=== PATIENT | female | born 1960 | race Caucasian/White ===

== ENCOUNTER → 2017-08-26 08:08 | Outpatient (CLI) | payer BC, SELFPAY ==
--- NOTE | 2017-08-26 08:30 | RAD_ITS ---
STUDY: PORTOGRAM. REASON FOR EXAM: Female, 56 years old. Assessment of the indwelling right portacatheter. FLUOROSCOPY TIME (if supplied): (0:52) minutes/seconds TECHNIQUE: 20 cc of Isovue-300 was injected into the indwelling portacatheter. Imaging was obtained. COMPARISON: None. FINDINGS: There is evidence of leakage of the contrast in the proximal portion of the catheter overlying the right lung apex and right clavicle. There is free flow of contrast from the tip of the catheter. RAD/Con Inj Omkar Eval [employer] [employer] Fluro IMPRESSION: Leakage of the catheter is seen in the proximal portion of the catheter overlying the right lung apex and right clavicle. The catheter is patent distally. Electronically Signed: Paulo Quiñones MD at 8:56 EDT Tel [phone], Service support ,
== END ==
LOC: RAD 08:11
PROVIDERS: Family Provider Student in an Organized Health Care Education/Training Program; PCP Student in an Organized Health Care Education/Training Program; Visit Provider Internal Medicine Hematology & Oncology
DX: Z45.2 Encounter for adjustment and management of vascular access device (principal)
CPT/HCPCS: 36598; Q9967; A4216

== ENCOUNTER 2018-05-02 20:57 | Emergency (ER) | payer BC, SELFPAY ==
[2018-05-02 20:59] VITALS: BP 124/83; PULSE 86; RESP 16; TEMP 36.6; O2SAT 98; BMI 21.9
--- NOTE | 2018-05-02 21:15 | EKG12_ITS ---
Test Reason : SOB Blood Pressure : / mmHG Vent. Rate : 084 BPM Atrial Rate : 084 BPM P-R Int : 206 ms QRS Dur : 072 ms QT Int : 388 ms P-R-T Axes : 069 -37 059 degrees QTc Int : 458 ms Normal sinus rhythm Left axis deviation Septal infarct , age undetermined Abnormal ECG Confirmed by ROWAN VELA ([id number]), medical transcription editor MOLLY WALKER ([id number]) on 05/06/2018 1:24:59 PM Referred By: GRIS Confirmed By:ROWAN VELA
[2018-05-02 21:38] VITALS: O2SAT 96
[2018-05-02 21:50] VITALS: PULSE 83; RESP 20
[2018-05-02] MEDS: Albuterol 2.5 MG/3 ML VIAL.NEB. INHALATION (21:50)
[2018-05-02] MEDS: Ipratropium/Albuterol Sulfate 3 ML AMPUL.NEB INHALATION (21:50)
[2018-05-02] MEDS: MethylPREDNISolone 125 MG/2 ML Vial IV (21:58)
[2018-05-02 22:03] VITALS: BP 115/73; PULSE 81; RESP 20; TEMP 36.8; O2SAT 98
[2018-05-02 22:04] LABS: Absolute Lymphocyte Count 2.29 X10^3/ul (0.83-4.51); Absolute Neutrophil Count 5.2 X10^3/uL (2.0-7.7); Basophil# 0.03 X10^3/uL; Basophil% 0.4 % (0-1); Eosinophil# 0.08 X10^3/uL; Eosinophils% 0.9 % (0-5); Hematocrit 33.6 % (37-47); Hemoglobin 10.3 g/dl (12.0-15.0); Lymphocyte # 2.29 X10^3/ul (4.0); Lymphocyte % 26.8 % (19-41); Mean Corp Hgb Conc 30.7 g/gl (32-36); Mean Corpuscular Volume 84.8 fL (81-99); Monocyte# 0.94 X10^3/uL; Neutrophil % 60.7 % (47-70); POSITIVE COUNT NO; POSITIVE DIFFERENTIAL NO; POSITIVE MORPHOLOGY NO; Platelet Count 444 K/mm3 (150-450); RBC Distribution Width CV 14.6 % (11.6-14.6); Red Blood Count 3.96 M/mm3 (4.2-5.4); White Blood Count 8.6 K/mm3 (4.4-11.0)
--- NOTE | 2018-05-02 22:06 | RAD_ITS ---
STUDY: X-RAY CHEST REASON FOR EXAM: Female, 57 years old. Worsening cough. TECHNIQUE: PA and lateral views of the chest. COMPARISON: August 29, 2015 FINDINGS: There is no new focal consolidation. There is a right-sided Mediport in place terminating within the superior vena cava. Normal size heart. There is a prosthetic mitral valve in place. Normal mediastinum and chaz. Normal visualized pulmonary arteries. Normal visualized aortic arch and descending thoracic aorta. Normal visualized thoracic spine. Normal visualized ribs, clavicles, and shoulders. There is no demonstrated abnormality of the visualized soft tissue structures of the upper abdomen. RAD/Chest PA and Lateral IMPRESSION: No acute cardiopulmonary process. Electronically Signed: Charlotte Ma MD at 22:40 EST Tel , Service support ,
[2018-05-02 22:19] LABS: Anion Gap 7 (5-15); BUN 17 mg/dL (7-18); BUN/Creat Ratio 18.6 RATIO (10-20); Calcium,Total 8.3 mg/dL (8.5-10.1); Chloride 107 mmol/L (98-107); Creatinine, Serum 0.91 mg/dL (0.55-1.02); EST Glomerular Filtration Rate 68 mL/min (>60); Est Glom Filt Rate - Afr Amer 82 mL/min (>60); Estimated Creatinine Clearance 60.32 ml/min; Glucose 88 mg/dL (74-106); Potassium 3.9 mmol/L (3.5-5.1); Sodium Level 139 mmol/L (136-145)
[2018-05-02 23:00] VITALS: BP 114/69; PULSE 81; RESP 19; TEMP 36.6; O2SAT 99
--- NOTE | 2018-05-02 23:07 | ED.VISSUMM ---
- ER Visit Summary Date of Service: 05/02/18 Chief Complaint: Wheezing and cough History of Present Illness: The patient is a 57 F with multiple medical issues including asthma/COPD presenting with cough and wheezing for several days. She saw her doctor and was prescribed Zithromax and steroids but her symptoms have not resolved. Her right lung feels somewhat sore but she denies pleuritic chest pain, diaphoresis, or any exertional component. It only hurts with coughing. Physical Examination: Vitals are within normal limits. She is not hypoxic. She has wheezing in both lung coelho but is still moving air well. Minimal chest wall tenderness on the right. No clinical evidence of DVT. Test Results: Test x-ray negative for infiltrate. Labs within normal limits. EKG unremarkable. She was given IV Solu-Medrol and several breathing treatments. On reexamination her lungs are clear and her right lung pain has resolved. Her pulse oximetry is 100% and she has no evidence of DVT. Emergency Department Course and Treatment: She looks quite well and is not in distress. She is breathing easily. She has no clinical evidence of DVT and no history of PE. Her right lung pain has resolved. She feels well and would like to go home. She is already on steroids and antibiotics. She will continue breathing treatments and assures me she will see her doctor tomorrow for follow-up. She will come back here if worse. Treatment Plan: We will up with her doctor tomorrow Disposition: Home stable Impression: Initial encounter acute asthma exacerbation, initial encounter acute lower respiratory tract infection This note was generated with Reel[employer]fer dictation software. It may contain incorrect words, spelling, and punctuation that were not noted in review of the chart prior to signing ED Disposition - Plan for ED Patient: Instructions: ED Bronchitis Asthmatic Referrals: Romeo Jerome, [Primary Care Provider] - As soon as possible
--- NOTE | 2018-05-02 23:11 | ED.DCSUM_ITS ---
- ER Visit Summary Date of Service: 05/02/18 Chief Complaint: Wheezing and cough History of Present Illness: The patient is a 57 F with multiple medical issues including asthma/COPD presenting with cough and wheezing for several days. She saw her doctor and was prescribed Zithromax and steroids but her symptoms have not resolved. Her right lung feels somewhat sore but she denies pleuritic chest pain, diaphoresis, or any exertional component. It only hurts with coughing. Physical Examination: Vitals are within normal limits. She is not hypoxic. She has wheezing in both lung coelho but is still moving air well. Minimal chest wall tenderness on the right. No clinical evidence of DVT. Test Results: Test x-ray negative for infiltrate. Labs within normal limits. EKG unremarkable. She was given IV Solu-Medrol and several breathing treatments. On reexamination her lungs are clear and her right lung pain has resolved. Her pulse oximetry is 100% and she has no evidence of DVT. Emergency Department Course and Treatment: She looks quite well and is not in distress. She is breathing easily. She has no clinical evidence of DVT and no history of PE. Her right lung pain has resolved. She feels well and would like to go home. She is already on steroids and antibiotics. She will continue breathing treatments and assures me she will see her doctor tomorrow for follow- up. She will come back here if worse. Treatment Plan: We will up with her doctor tomorrow Disposition: Home stable Impression: Initial encounter acute asthma exacerbation, initial encounter acute lower respiratory tract infection This note was generated with [employer] dictation software. It may contain incorrect words, spelling, and punctuation that were not noted in review of the chart prior to signing ED Disposition - Plan for ED Patient: Instructions: ED Bronchitis Asthmatic Referrals: Romeo Jerome, [Primary Care Provider] - As soon as possible
[2018-05-02 23:36] VITALS: BP 114/64; PULSE 71; RESP 16; O2SAT 97
== END 2018-05-02 23:38 | disposition home or self-care (01) ==
LOC: ED 21:23
PROVIDERS: Emergency Provider Emergency Medicine; Family Provider Student in an Organized Health Care Education/Training Program; PCP Student in an Organized Health Care Education/Training Program
DX: J44.0 Chronic obstructive pulmonary disease with (acute) lower respiratory infection (principal); J45.901 Unspecified asthma with (acute) exacerbation; Z79.02 Long term (current) use of antithrombotics/antiplatelets; Z79.899 Other long term (current) drug therapy
CPT/HCPCS: 36591; 71046; 80048; 84484; 85025; 87804; 93005; 94640; 96374; 99283; A4216

== ENCOUNTER 2018-07-10 12:29 | Emergency (ER) | payer BC, SELFPAY ==
[2018-07-10 12:30] VITALS: BP 115/78; PULSE 84; RESP 16; TEMP 36.2; O2SAT 100; BMI 21.4
--- NOTE | 2018-07-10 12:52 | CT_ITS ---
STUDY: CT FACIAL BONES WITHOUT CONTRAST REASON FOR EXAM: Female, 57 years old. Fall, striking head on ground, pain left side of the head. Daily aspirin. RADIATION DOSAGE (If Supplied By Facility): CTDIvol = ( 29.38 ) mGy, DLP = ( 547.46 ) mGycm TECHNIQUE: The patient was scanned in a multi detector CT scanner. Sagittal and coronal images were reconstructed. Individualized dose optimization techniques were used for this CT. COMPARISON: CT head same date. FINDINGS: Superficial facial soft tissues exhibit no acute abnormality. Orbital contents normal. Deep facial and pharyngeal soft tissues exhibit no acute process. No cervical lymphadenopathy. Upper cervical spine intact. Sinuses clear. Orbital rims, agustin, nasal bone, maxilla, zygomatic arches, mandible intact. CT/Sinus/Facial Bone IMPRESSION: No evidence of acute injury. Electronically Signed: Austen Chavez MD at 14:07 EDT Tel , Service support ,
--- NOTE | 2018-07-10 12:52 | CT_ITS ---
STUDY: CT BRAIN WITHOUT CONTRAST REASON FOR EXAM: Female, 57 years old. Fall, striking head on the ground, pain left side of the head. Daily aspirin. RADIATION DOSAGE (If Supplied By Facility): CTDIvol = ( 44.99 ) mGy, DLP = ( 745.49 ) mGycm TECHNIQUE: Transaxial CT imaging of the brain was performed without administration of intravenous contrast material. Sagittal and coronal 2-D MPR Individualized dose optimization techniques were used for this CT. COMPARISON: CT maxillofacial same date.. FINDINGS: Paranasal sinuses within the field of view are clear. Mastoid air cells and middle ear cavities clear. Calvarium osseous structures intact. Extra cranial soft tissues including orbital contents exhibits no acute process. The brain is normal in attenuation characteristics and morphology. There is no acute intracranial bleed. CT/Brain/Head without Contrast IMPRESSION: No evidence of acute injury. No acute intracranial process. Electronically Signed: Austen Chavez MD at 14:05 EDT Tel , Service support ,
--- NOTE | 2018-07-10 12:52 | RAD_ITS ---
STUDY: X-RAY - PELVIS AND LEFT HIP REASON FOR EXAM: Female, 57 years old. Fall, left hip pain TECHNIQUE: 3 views of the pelvis and hip. COMPARISON: None. FINDINGS: Osteopenia, minimal low lumbar scoliosis, low lumbar facet arthropathy and mild disc degenerative disease, mild symmetric degenerative features of the SI joints, symmetric and normal appearance of the sacral ala. Iliac crests intact. Pubic rami intact. Mild DJD of the right hip joint. Next line mild DJD of the left hip joint. It exhibits minimal joint margin osteophytic lipping. There is no evidence of proximal femur fracture of the right or the left. Periarticular soft tissues unremarkable. RAD/HIP, UNI W/ Pelvis 2-3 Views IMPRESSION: Mild hip DJD. No radiographic evidence of acute injury. Electronically Signed: Austen Chavez MD at 14:04 EDT Tel , Service support ,
--- NOTE | 2018-07-10 12:59 | ED.DCSUM_ITS ---
- ER Visit Summary Date of Service: 07/10/18 Chief Complaint: Fall History of Present Illness: The patient is a 57 F presenting after fall. Patient states this occurred last night. She was trying to get her dog into the house and the dog pulled her and she tripped and fell. She landed on her left side. She hit her head but did not lose consciousness. She was able to ambulate after the fall. She complains of left hip pain and persistent headache. She did not take any medications for this at home. Denies other complaints. Physical Examination: Vitals are stable. Patient is afebrile. Alert no acute distress. HEENT exam left periorbital tenderness. No pain with extraocular movements. Midface is stable Neck is nontender Lungs are clear and equal bilaterally. Heart is regular rate and rhythm. Abdomen is soft nontender nondistended. Extremities mild lateral left hip tenderness, active full range of motion Skin is warm and dry. No focal neurologic deficit. Remainder of exam is unremarkable. Emergency Department Course and Treatment: Left hip x-ray shows mild hip DJD. No radiographic evidence of acute injury. CT head and facial bones shows no evidence of acute injury. No acute intracranial process. Patient is able to ambulate in the ED. On reevaluation she is resting comfortably. Advised to follow-up with her primary care physician. Advised return to ED for worsening complaints. Disposition: Discharge home Impression: Status post mechanical fall, closed head injury, left hip contusion This note was generated with Novogen dictation software. It may contain incorrect words, spelling, and punctuation that were not noted in review of the chart prior to signing ED Disposition - Plan for ED Patient: Referrals: Romeo Jerome DO [Primary Care Provider] -
--- NOTE | 2018-07-10 14:19 | ED.DEP ---
ED Disposition - Plan for ED Patient: Instructions: ED Mechanical Fall Referrals: Romeo Jerome DO [Primary Care Provider] -
[2018-07-10 14:23] VITALS: BP 118/62; PULSE 75; RESP 18; O2SAT 100
== END 2018-07-10 14:24 | disposition home or self-care (01) ==
LOC: ED 13:05
PROVIDERS: Emergency Provider Emergency Medicine; Family Provider Student in an Organized Health Care Education/Training Program; PCP Student in an Organized Health Care Education/Training Program
DX: S09.90XA Unspecified injury of head, initial encounter (principal); S70.02XA Contusion of left hip, initial encounter; M16.12 Unilateral primary osteoarthritis, left hip; W01.0XXA Fall on same level from slipping, tripping and stumbling without subsequent striking against object, initial encounter; Y93.9 Activity, unspecified; Y92.9 Unspecified place or not applicable; J44.9 Chronic obstructive pulmonary disease, unspecified; M81.0 Age-related osteoporosis without current pathological fracture; Z79.899 Other long term (current) drug therapy
CPT/HCPCS: 70450; 70486; 73502; 99282

== ENCOUNTER 2019-12-07 09:26 | Emergency (ER) | payer BC, SELFPAY ==
[2019-12-07 09:32] VITALS: BP 142/92; PULSE 89; RESP 16; TEMP 36.3; O2SAT 99; BMI 21.6
--- NOTE | 2019-12-07 09:47 | EKG12_ITS ---
Test Reason : CP Blood Pressure : / mmHG Vent. Rate : 080 BPM Atrial Rate : 080 BPM P-R Int : 196 ms QRS Dur : 084 ms QT Int : 386 ms P-R-T Axes : 081 -63 072 degrees QTc Int : 445 ms Normal sinus rhythm Left axis deviation Abnormal ECG Confirmed by AMOS SANDHU, RODRÍGUEZ ([id number]), production editor ERIKA ARREAGA ([id number]) on 12/13/2019 10:59:43 AM Referred By: AGGIE/EUGENIA Confirmed By:STEPHON TRINIDAD MD
--- NOTE | 2019-12-07 10:15 | RAD_ITS ---
STUDY: X-RAY CHEST REASON FOR EXAM: Female, 59 years old. CHEST PAIN, ASTHMA COPD, PORT PLACED FOR PORPHYRIA TECHNIQUE: Single AP portable view of the chest. COMPARISON: 05/02/2018. FINDINGS: Valve repair. Right-sided Mediport catheter with tip at the atrial caval junction. Cardiac silhouette unremarkable. Pulmonary vascularity unremarkable. Aorta unremarkable. No focal patchy airspace opacities. No pleural effusions. COPD/emphysema. Upper abdomen unremarkable. Osseous structures intact. No pneumothorax. RAD/Chest 1 View (Portable) IMPRESSION: No acute cardiopulmonary findings Electronically Signed: Davian Harris DO at 10:35 EDT Tel , Service support ,
[2019-12-07 10:19] LABS: Absolute Lymphocyte Count 1.57 X10^3/uL (0.83-4.51); Absolute Neutrophil Count 2.7 X10^3/uL (2.0-7.7); Basophil# 0.03 X10^3/uL; Basophil% 0.6 % (0-1); Eosinophil# 0.12 X10^3/uL; Eosinophils% 2.4 % (0-5); Hematocrit 38.7 % (37-47); Hemoglobin 12.2 g/dL (12.0-15.0); Lymphocyte # 1.57 X10^3/ul (4.0); Lymphocyte % 31.9 % (19-41); Mean Corp Hgb Conc 31.5 g/dL (32-36); Mean Corpuscular Hgb 26.3 pg (27.0-32.0); Mean Corpuscular Volume 83.4 fL (81-99); Mean Platelet Vol. 9.4 fl (6.2-12.0); Monocyte# 0.52 X10^3/uL; Monocyte% 10.6 % (0-10); NRBC Flagged by Analyzer 0 % (0-5); Neutrophil # 2.67 X10^3/uL (2.7-7.7); Neutrophil % 54.3 % (47-70); Platelet Count 327 K/mm3 (150-450); RBC Distribution Width CV 13.3 % (11.6-14.6); RBC Distribution Width SD 40.6 fl (35.1-43.9); Red Blood Count 4.64 M/mm3 (4.2-5.4); White Blood Count 4.9 K/mm3 (4.4-11.0)
[2019-12-07 10:26] VITALS: BP 110/56; PULSE 73; RESP 18; O2SAT 96
[2019-12-07 10:33] LABS: D-Dimer Quantitative (DVT/PE) <= 0.27 FEU/ug/m (0.27-0.49)
[2019-12-07 10:36] VITALS: O2SAT 97
[2019-12-07 10:36] LABS: Anion Gap 4 (5-15); BUN 15 mg/dL (7-18); BUN/Creat Ratio 18.3 RATIO (10-20); Calcium,Total 8.9 mg/dL (8.5-10.1); Chloride 106 mmol/L (98-107); Creatinine, Serum 0.82 mg/dL (0.55-1.02); EST Glomerular Filtration Rate 76 mL/min (>60); Est Glom Filt Rate - Afr Amer 93 mL/min (>60); Estimated Creatinine Clearance 68.11 ml/min; Glucose 91 mg/dL (74-106); Potassium 3.6 mmol/L (3.5-5.1); Sodium Level 139 mmol/L (136-145)
[2019-12-07] MEDS: 0.9% Normal Saline 1,000 ML 150 ML IV (10:43)
[2019-12-07 10:45] VITALS: BP 113/68; PULSE 70
[2019-12-07] MEDS: Nitroglycerin SL (ED/IMG/CATH) 0.4 MG TABLET SUBLINGUAL (10:45)
[2019-12-07] MEDS: Aspirin 81 MG TAB.CHEW 324 MG PO (10:45)
--- NOTE | 2019-12-07 11:04 | ED.DEP ---
ED Disposition - Plan for ED Patient: Instructions: ED Chest Pain Atypical Unkn Cause, ED CHEST PAIN [place] Referrals: Romeo Jerome DO [Primary Care Provider] - 3-5 Days
[2019-12-07 11:35] VITALS: BP 112/67; PULSE 78; RESP 18; TEMP 36.6
--- NOTE | 2019-12-09 21:34 | ED.VISSUMM ---
- ER Visit Summary Date of Service: 12/09/19 Chief Complaint: [Chest pain] History of Present Illness: The patient is a 59 F [presents to the emergency department chest pain that started 6 days ago. Patient said intermittent discomfort she describes as an aching in the left side of her chest. She currently rates it about a 4 5 out of 10. There is no radiation of the pain. Patient states she is had some hot and cold flashes. She took some Tums but did not get any relief for the discomfort. She denies any radiation of the pain. She denies any significant shortness of breath. Patient's had no nausea or vomiting. She is not had discomfort like this before. She denies recent travel or surgery. No history of PE or DVT. No cardiac history. Patient does have history of SVT, porphyria, and hypothyroidism. Patient has history of osteoarthritis. Patient does not smoke.] Physical Examination: [HEENT-PERRLA, EOMI. Cranial nerves II through XII grossly intact. TMs clear. Mucous membranes moist. No adenopathy. Cardiovascular-regular rate and rhythm without murmur or ectopy Lungs-clear to auscultation, chest wall stable without crepitus or subcu emphysema. Patient does have tenderness palpation over the left anterior chest wall that seems to reproduce her pain. Abdomen-normoactive bowel sounds, soft, nontender, no rebound or rigidity, no peritoneal signs. Extremities-intact ?4, normal range of motion, normal pulses, atraumatic] Test Results: [EKG obtained arrival shows sinus rhythm with a ventricular rate of 80 bpm with no acute segment changes. Chest x-ray showed nothing acute. CBC with it was normal. Chemistries unremarkable. Troponin was less than 0.015. D-dimer was less than 0.25.] Emergency Department Course and Treatment: [IV line established on arrival. Patient was given aspirin.] Patient was given sublingual nitro which really did not improve her pain. Treatment Plan: [This point discussed results with patient. Her chest pain is atypical and she is low risk as her AL risk score was 0. Patient's pain is reproducible. At this point I feel she can follow-up with her primary care physician the next 3 to 5 days. Patient advised to return if worsening pain, increasing shortness of breath, exertional symptoms, or condition should worsen anyway.] Disposition: [Discharged home in stable condition] Impression: [Chest pain-atypical Chest wall pain] This note was generated with Spavista dictation software. It may contain incorrect words, spelling, and punctuation that were not noted in review of the chart prior to signing ED Disposition - Plan for ED Patient: Disposition: Home or Assisted Living Instructions: ED Chest Pain Atypical Unkn Cause, ED CHEST PAIN [place] Referrals: Romeo Jerome DO [Primary Care Provider] - 3-5 Days
== END 2019-12-07 11:37 | disposition home or self-care (01) ==
PROVIDERS: Emergency Provider Emergency Medicine; PCP Student in an Organized Health Care Education/Training Program
DX: R07.89 Other chest pain (principal)
CPT/HCPCS: 36591; 71045; 80048; 84484; 85025; 85379; 93005; 99285; J7030; A4216

== ENCOUNTER 2021-01-28 15:48 | Outpatient (CLI) | payer BC, SELFPAY ==
[2021-01-28] MEDS: 0.9% Saline Lock 10 ML Syringe IV (16:20)
[2021-01-28 16:21] VITALS: BP 103/47; PULSE 74; RESP 16; TEMP 36.7; O2SAT 95; BMI 22.1
[2021-01-28 17:02] VITALS: BP 115/55; PULSE 78; RESP 16; TEMP 36.8; O2SAT 100
[2021-01-28 17:48] VITALS: BP 97/62; PULSE 76; RESP 16; TEMP 36.6; O2SAT 100
== END 2021-01-28 18:00 | disposition home or self-care (01) ==
LOC: MS3OUT 15:48 → MS3 15:51
PROVIDERS: PCP Student in an Organized Health Care Education/Training Program; Referring Provider Nurse Practitioner Adult Health; Visit Provider Nurse Practitioner Adult Health
DX: Z23 Encounter for immunization (principal); U07.1 COVID-19
CPT/HCPCS: J7050; M0245; Q0245; A4216

== ENCOUNTER 2021-11-23 11:43 | Emergency (ER) | payer OTHER, SELFPAY ==
[2021-11-23 11:44] VITALS: BP 114/69; PULSE 83; RESP 17; TEMP 36.6; O2SAT 100; BMI 22.6
--- NOTE | 2021-11-23 11:55 | CT_ITS ---
STUDY: CT BRAIN WITHOUT CONTRAST REASON FOR EXAM: Female, 61 years old. left arm parasthesia RADIATION DOSAGE (If Supplied By Facility): CTDIvol = ( 44.99 ) mGy, DLP = ( 796.11 ) mGycm TECHNIQUE: Transaxial CT imaging of the brain was performed without administration of intravenous contrast material. Individualized dose optimization techniques were used for this CT. COMPARISON: 07/10/2018 FINDINGS: Normal soft tissue structures. Normal calvarium. Normal size ventricles and extra-axial spaces for the patient''s age. Normal white matter tracts of the cerebral hemispheres. Normal basal ganglia and thalami. Normal brainstem. Normal cerebellum. There is no intracranial hemorrhage. There are no findings of an acute ischemic infarction. Normal visualized paranasal sinuses. CT/Brain/Head without Contrast IMPRESSION: Normal unenhanced CT scan of the brain. Electronically Signed: Austen Roberts MD at 12:32 EDT ,
--- NOTE | 2021-11-23 11:58 | EX.ED.DYSGE1 ---
HPI History of Present Illness Chief Complaint: Nausea/Vomiting Narrative Narrative: Patient presents with nausea and vomiting that started this morning she also had noticed some paresthesias in her left arm. No weakness, no confusion, no vision changes. She is denying any chest pain or shortness of breath. She has no back pain or tearing sensation. She has no pleuritic component. She has no headache or vision changes, no confusion, no other weaknesses or paresthesias. She has some chronic gait problems but they have not changed. [facility] Medical History Eustachian tube disorder Mitral valve disorder Home Medications folic acid 1 mg tablet 1 mg PO DAILY@0800 04/17/15 [History Last Taken Unknown] levothyroxine 112 mcg tablet 88 mcg PO DAILY 04/17/15 [History Last Taken Unknown] cholecalciferol (vitamin D3) 25 mcg (1,000 unit) tablet (Vitamin D3) 2,000 unit PO DAILY 08/29/15 [History Last Taken Unknown] tizanidine 4 mg capsule (Zanaflex) 4 mg PO BID PRN PRN Pain 07/10/18 [History Last Taken Unknown] ondansetron 4 mg disintegrating tablet 4 mg PO Q8H #10 tabs 11/23/21 [Rx Last Taken Unknown] Allergy/AdvReac Type Severity Reaction Status Date / Time adhesive Allergy PT UNSURE Verified 11/23/21 11:43 OF REACTION amoxicillin [From Augmentin] Allergy PT UNSURE Verified 11/23/21 11:43 OF REACTION capsaicin Allergy PT UNSURE Verified 11/23/21 11:43 OF REACTION ciprofloxacin [From Cipro] Allergy PT UNSURE Verified 11/23/21 11:43 OF REACTION clavulanic acid Allergy PT UNSURE Verified 11/23/21 11:43 [From Augmentin] OF REACTION clindamycin Allergy PT UNSURE Verified 11/23/21 11:43 OF REACTION codeine Allergy Other Verified 11/23/21 11:43 divalproex sodium Allergy PT UNSURE Verified 11/23/21 11:43 [From Depakote] OF REACTION hydrocodone Allergy PT UNSURE Verified 11/23/21 11:43 OF REACTION loratadine [From Claritin] Allergy PT UNSURE Verified 11/23/21 11:43 OF REACTION meperidine HCl [From Demerol] Allergy Other Verified 11/23/21 11:43 oxycodone Allergy PT UNSURE Verified 11/23/21 11:43 OF REACTION pregabalin [From Lyrica] Allergy PT UNSURE Verified 11/23/21 11:43 OF REACTION propoxyphene HCl Allergy Other Verified 11/23/21 11:43 [From Darvon] sulfamethoxazole Allergy PT UNSURE Verified 11/23/21 11:43 [From Bactrim] OF REACTION tetracycline Allergy Itching Verified 11/23/21 11:43 trimethoprim [From Bactrim] Allergy PT UNSURE Verified 11/23/21 11:43 OF REACTION GOLD TYPICAL AGENT Allergy PT UNSURE Uncoded 11/23/21 11:43 OF REACTION Surgical History H/O aortic valve repair H/O knee surgery H/O mitral valve repair H/O removal of cyst History of tonsillectomy Social History Smoking Status: Never smoker ROS ROS ED ROS Narrative Past medical history: Reviewed, includes porphyria, history of significant mitral valve prolapse status post surgery. Medications: Reviewed, she is not anticoagulated Social history: Noncontributory Review of systems: All systems negative except as indicated General: No fever Eyes: No visual changes ENT: No upper airway congestion, normal voice Neck: No neck pain Cardiovascular: No chest pain, no palpitations Respiratory: No shortness of breath or cough Gastrointestinal: No abdominal pain, nausea but no vomiting. No diarrhea or constipation. Genitourinary: No dysuria Musculoskeletal: Denies myalgias no difficulty with ambulation. Left arm paresthesias. Skin: No rash Neurological: No memory loss, confusion or any focal weakness Psych: No recent behavioral changes Hematologic: No easy bleeding or easy bruising EXAM Physical Exam Narrative Exam Narrative: Physical exam General: Well nourished, Well developed, No Acute Distress Head: Normocephalic, Atraumatic Eyes: Conjunctiva not pale ENT: Moist mucous membranes Neck: Supple, Nontender, No lymphadenopathy Cardiovascular: Regular rate, Regular rhythm Respiratory: No distress, CTA bilaterally Abdomen: Soft, Nontender, Nondistended Back: Nontender, Normal Inspection. Negative for: CVA tenderness Extremities: Nontender, No edema, full range of motion including the left upper extremity with normal strength Skin: Normal color, No rash Neurological: Alert, Normal Strength in all extremities including the left upper extremity no pronator drift. Normal sensation compared to the other side but she does have subjective paresthesias. Psychological: Normal affect Const Vital Signs: 11/23/21 11:44 Temperature 97.8 F Temperature Source Temporal Pulse Rate 83 Respiratory Rate 17 Blood Pressure 114/69 Blood Pressure Mean 84 Pulse Ox 100 Oxygen Delivery Method Room Air MDM MDM MDM Narrative Medical decision making narrative: Patient's work-up is unremarkable her nausea is significantly improved she is currently asymptomatic I do not believe she has any neurological symptoms, she has some ambiguous paresthesias but there is no obvious sensory deficit when compared to 2 sides, there is no weakness. No other neurological symptoms she has a normal CT. I believe she is safe for discharge. We will give her antiemetics for home if anything changes she is to return. Lab Data Labs: Laboratory Results - last 24 hr 11/23/21 11/23/21 12:00 12:00 WBC 5.4 RBC 4.43 Hgb 10.8 L Hct 35.3 L MCV 79.7 L MCH 24.4 L MCHC 30.6 L RDW Std Deviation 43.0 RDW Coeff of Valeriy 14.7 H Plt Count 388 MPV 9.4 Immature Gran % (Auto) 0.400 Neut % (Auto) 55.4 Lymph % (Auto) 31.6 Addison % (Auto) 9.7 Eos % (Auto) 2.2 Baso % (Auto) 0.7 Absolute Neuts (auto) 3.0 Absolute Lymphs (auto) 1.69 Nucleated RBC % 0 Sodium 144 Potassium 3.9 Chloride 108 H Carbon Dioxide 25.0 Anion Gap 11 BUN 11 Creatinine 0.73 Estim Creat Clear Calc 74.67 Est GFR (MDRD) Af Amer 104 Est GFR (MDRD) Non-Af 86 BUN/Creatinine Ratio 15.0 Glucose 103 Calcium 9.1 Total Bilirubin 0.30 AST 28 ALT 44 Alkaline Phosphatase 79 Troponin I High Sens 5 Total Protein 7.2 Albumin 3.7 Globulin 3.5 Albumin/Globulin Ratio 1.1 Lipase 121 Radiography Diagnostic Testing: Clinical Impression(s) from Imaging Studies Brain CT 11/23/21 11:55 IMPRESSION: Normal unenhanced CT scan of the brain. Electronically Signed: Austen Roberts MD at 12:32 EDT , Discharge Plan Triage Chief Complaint: Nausea/Vomiting ED Provider: Avila Portillo Dx/Rx/DC Orders Clinical Impression: Arm paresthesia, left, Nausea Instructions: ED Paraesthesias Prescriptions: New ondansetron 4 mg tablet,disintegrating 4 mg PO Q8H Qty: 10 0RF No Action folic acid 1 MG tablet 1 mg PO DAILY@0800 levothyroxine 112 MCG tablet 88 mcg PO DAILY cholecalciferol (vitamin D3) [Vitamin D3] 1,000 UNIT tablet 2,000 unit PO DAILY tizanidine [Zanaflex] 4 MG capsule 4 mg PO BID PRN PRN (Reason: Pain) Primary Care Provider: Romeo Jerome Referrals: Romeo Jerome DO [Primary Care Provider] - 3-5 Days Disposition Disposition: Home, Self Care
[2021-11-23] MEDS: Ondansetron 4 MG/2 ML Vial IV (12:01)
[2021-11-23 12:16] LABS: Absolute Lymphocyte Count 1.69 X10^3/uL (0.83-4.51); Basophil# 0.04 X10^3/uL; Basophil% 0.7 % (0-1); Eosinophil# 0.12 X10^3/uL; Eosinophils% 2.2 % (0-5); Hematocrit 35.3 % (37-47); Hemoglobin 10.8 g/dL (12.0-15.0); Lymphocyte # 1.69 X10^3/ul (0.83-4.51); Lymphocyte % 31.6 % (19-41); Mean Corp Hgb Conc 30.6 g/dL (32-36); Mean Corpuscular Hgb 24.4 pg (27.0-32.0); Mean Corpuscular Volume 79.7 fL (81-99); Mean Platelet Vol. 9.4 fl (6.2-12.0); Monocyte# 0.52 X10^3/uL; Monocyte% 9.7 % (0-10); NRBC Flagged by Analyzer 0 % (0-5); Neutrophil # 2.96 X10^3/uL (2.7-7.7); Neutrophil % 55.4 % (47-70); Platelet Count 388 K/mm3 (150-450); RBC Distribution Width CV 14.7 % (11.6-14.6); Red Blood Count 4.43 M/mm3 (4.2-5.4); White Blood Count 5.4 K/mm3 (4.4-11.0)
[2021-11-23 12:27] LABS: ALB/GLOB Ratio 1.1 RATIO (0.9-2.4); AST(SGOT) 28 U/L (15-37); Alanine Aminotransfer ALT/SGPT 44 U/L (13-56); Albumin, Serum 3.7 g/dL (3.2-5.0); Alkaline Phosphatase 79 U/L (45-117); Anion Gap 11 (5-15); BUN 11 mg/dL (7-18); Calcium,Total 9.1 mg/dL (8.5-10.1); Chloride 108 mmol/L (98-107); Creatinine, Serum 0.73 mg/dL (0.55-1.02); EST Glomerular Filtration Rate 86 mL/min (>60); Est Glom Filt Rate - Afr Amer 104 mL/min (>60); Estimated Creatinine Clearance 74.67 ml/min; Globulin 3.5 g/dL (2.2-4.2); Glucose 103 mg/dL (74-106); Lipase 121 U/L (73-393); Potassium 3.9 mmol/L (3.5-5.1); Protein, Total 7.2 g/dL (6.4-8.2); Sodium Level 144 mmol/L (136-145); Troponin-I HS 5 pg/mL (3.0-54.0)
== END 2021-11-23 13:31 | disposition home or self-care (01) ==
PROVIDERS: Emergency Provider Emergency Medicine; PCP Student in an Organized Health Care Education/Training Program; Visit Provider Emergency Medicine
DX: R11.2 Nausea with vomiting, unspecified (principal); R20.2 Paresthesia of skin
CPT/HCPCS: 36591; 70450; 80053; 83690; 84484; 85025; 96361; 96374; 99284; J7030; A4216; J2405